=== PATIENT | male | born 1970 | race Caucasian/White ===

== ENCOUNTER 2018-07-05 11:34 | Emergency (ER) | payer OTHER ==
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
[2018-07-05] MEDS ORDERED: LET GEL TOPICAL 1 EA SYR TP ONE (11:46)
[2018-07-05] MEDS ORDERED: TDAP ADULT 0.5 ML INJ (BOOSTRIX) IM ONE (11:46)
[2018-07-05 13:26] VITALS: BP 136/97
== END 2018-07-05 13:26 | disposition home or self-care (01) ==
PROC: 0CQ0XZZ Repair Upper Lip, External Approach (ICD-10-PCS; principal; 2018-07-05)
DX: S01.511A Laceration without foreign body of lip, initial encounter (principal); S00.81XA Abrasion of other part of head, initial encounter; S00.01XA Abrasion of scalp, initial encounter; S20.211A Contusion of right front wall of thorax, initial encounter; F10.920 Alcohol use, unspecified with intoxication, uncomplicated; Z23 Encounter for immunization; I10 Essential (primary) hypertension; V19.9XXA Pedal cyclist (driver) (passenger) injured in unspecified traffic accident, initial encounter; Y99.9 Unspecified external cause status